=== PATIENT | male | born 1960 | race Caucasian/White ===

== ENCOUNTER 2022-03-16 09:51 | Outpatient (CLI) | payer BC, SELFPAY ==
[2022-03-16 14:10] LABS: Chloride* 105 mmol/L (96-114); Sodium* 140 mmol/L (135-149)
[2022-03-16 14:13] LABS: Carbon Dioxide* 26 mmol/L (20-32); Cholesterol* 163 mg/dL (90-199); Estimated Glomerular Filt Rate 86 ml/min
[2022-03-16 14:14] LABS: Blood Urea Nitrogen* 14 mg/dL (7-30); Calcium* 9.8 mg/dL (8.4-10.6); Glucose* 92 mg/dL (60-115); HDL Cholesterol* 46 mg/dL (>=40); LDL Cholesterol Calculated 90 mg/dL (<100); Triglycerides* 133 mg/dL (40-149)
[2022-03-16 14:25] LABS: Potassium* 4.3 mmol/L (3.6-5.1)
[2022-03-16 14:44] LABS: PSA Diagnostic* < 0.06 ng/mL (0.10-4.00)
== END 2022-03-16 09:52 | disposition home or self-care (01) ==
PROVIDERS: PCP Family Medicine; Visit Provider Family Medicine
DX: Z00.00 Encounter for general adult medical examination without abnormal findings (principal); E78.5 Hyperlipidemia, unspecified; C61 Malignant neoplasm of prostate; Z13.1 Encounter for screening for diabetes mellitus
CPT/HCPCS: 80048; 80061; 84153

== ENCOUNTER 2023-03-19 09:16 | Outpatient (CLI) | payer BC, SELFPAY | END 2023-03-19 09:17 | disposition home or self-care (01) | PROVIDERS: PCP Family Medicine; Visit Provider Family Medicine | DX: Z00.00 Encounter for general adult medical examination without abnormal findings (principal); E78.5 Hyperlipidemia, unspecified; Z13.1 Encounter for screening for diabetes mellitus | CPT/HCPCS: 80048; 80061 ==

== ENCOUNTER 2023-11-10 10:19 | Outpatient (CLI) | payer OTHER, SELFPAY | END 2023-11-10 10:20 | disposition home or self-care (01) | LOC: NFLDREF 11-24 11:14 | PROVIDERS: PCP Family Medicine; Referring Provider Family Medicine; Visit Provider Family Medicine | DX: C61 Malignant neoplasm of prostate (principal) | CPT/HCPCS: 84153 ==

== ENCOUNTER 2024-03-29 08:28 | Outpatient (CLI) | payer OTHER, SELFPAY | END 2024-03-29 08:29 | disposition home or self-care (01) | PROVIDERS: PCP Family Medicine; Visit Provider Family Medicine | DX: Z00.00 Encounter for general adult medical examination without abnormal findings (principal); E78.5 Hyperlipidemia, unspecified; Z13.1 Encounter for screening for diabetes mellitus; Z13.0 Encounter for screening for diseases of the blood and blood-forming organs and certain disorders involving the immune mechanism | CPT/HCPCS: 80048; 80061 ==